=== PATIENT | male | born 1950 | race Caucasian/White ===

== ENCOUNTER 2017-08-15 08:34 | Outpatient (RCR) | payer MEDICARE, SELFPAY ==
[2017-08-15 10:19] LABS: International Normalized Ratio 2.3; Prothrombin Time (Protime)PT. 24.2 SECONDS (11.7-14.9)
== END 2017-08-15 09:00 | disposition home or self-care (01) ==
LOC: LAB 08:34
PROVIDERS: Family Provider Family Medicine; PCP Family Medicine; Visit Provider Internal Medicine Cardiovascular Disease
DX: I48.0 Paroxysmal atrial fibrillation (principal)
CPT/HCPCS: 36415; 85610

== ENCOUNTER 2017-09-12 08:20 | Outpatient (RCR) | payer MEDICARE, SELFPAY ==
[2017-09-12 09:22] LABS: International Normalized Ratio 2.1; Prothrombin Time (Protime)PT. 22.4 SECONDS (11.7-14.9)
== END 2017-09-12 08:45 | disposition home or self-care (01) ==
LOC: LAB 08:20
PROVIDERS: Family Provider Family Medicine; PCP Family Medicine; Visit Provider Internal Medicine Cardiovascular Disease
DX: I48.0 Paroxysmal atrial fibrillation (principal)
CPT/HCPCS: 36415; 85610

== ENCOUNTER 2017-11-05 08:58 | Outpatient (RCR) | payer MEDICARE, SELFPAY ==
[2017-11-05 10:42] LABS: International Normalized Ratio 2.1; Prothrombin Time (Protime)PT. 23.6 SECONDS (11.7-14.9)
== END 2017-11-05 09:00 | disposition home or self-care (01) ==
LOC: LAB 08:58
PROVIDERS: Family Provider Family Medicine; PCP Family Medicine; Visit Provider Internal Medicine Cardiovascular Disease
DX: I48.0 Paroxysmal atrial fibrillation (principal)
CPT/HCPCS: 36415; 85610

== ENCOUNTER 2017-12-03 08:35 | Outpatient (RCR) | payer MEDICARE, SELFPAY ==
[2017-12-03 09:37] LABS: International Normalized Ratio 2.3; Prothrombin Time (Protime)PT. 25.6 SECONDS (11.7-14.9)
== END 2017-12-03 09:00 | disposition home or self-care (01) ==
LOC: LAB 08:35
PROVIDERS: Family Provider Family Medicine; PCP Family Medicine; Visit Provider Internal Medicine Cardiovascular Disease
DX: I48.0 Paroxysmal atrial fibrillation (principal)
CPT/HCPCS: 36415; 85610

== ENCOUNTER → 2017-12-03 09:26 | Outpatient (CLI) | payer MEDICARE, SELFPAY ==
--- NOTE | 2017-12-03 09:27 | ECHOCS_ITS ---
Reason For Study: AFIB-FLUTTER Procedure This was a 2D Doppler, Color Flow transthoracic echocardiogram. Exam performed in department. Left Ventricle Normal LV size. Moderate concentric left ventricular hypertrophy. Left ventricular systolic function is normal. The estimated ejection fraction is 55 %. Unable to assess diastolic dysfunction. No regional wall motion abnormalities noted. Right Ventricle Normal RV size. Normal systolic function. Atria The left atrium is severely enlarged. The right atrium is moderately enlarged. Mitral Valve Normal mitral valve. Mild (1+) eccentric mitral valve insufficiency. Tricuspid Valve Normal tricuspid valve. Mild (1+) tricuspid valve insufficiency. Pulmonary artery systolic pressure is 24 mmHg. Aortic Valve Trisinus/trileaflet aortic valve. Pulmonic Valve Normal pulmonic valve. Great Vessels Normal aortic root. The pulmonary artery is normal size. Normal inferior vena cava. Pericardium/Pleural No pericardial effusion. Medication 22 gauge I.V. with prn adaptor inserted into right arm. Diluted definity 3ml given slow IV push to enhance endocardial definition. MMode/2D Measurements & Calculations LVIDd: 4.8 cm IVSd: 1.3 cm Ao root diam: 3.9 cm LVIDs: 3.4 cm LVPWd: 1.4 cm RVDd: 3.9 cm FS: 28.5 % LAV(MOD-bp): 197.8 ml LAV(MOD-bp) Indexed: 86.2 ml/m2 LA A4 area: 48.4 cm2 RA A4 area: 28.4 cm2 LAV(MOD-sp2): 175.4 ml LAV(MOD-sp4): 211.4 ml Doppler Measurements & Calculations MV E max rosa: 116.6 cm/sec Ao V2 max: 123.4 cm/sec LV V1 max: 117.4 cm/sec Ao max P.1 mmHg LV V1 max P.5 mmHg PA V2 max: 93.0 cm/sec TR max rosa: 226.7 cm/sec TR max P.6 mmHg Interpretation Summary Normal LV size. Moderate concentric left ventricular hypertrophy. Left ventricular systolic function is normal. The estimated ejection fraction is 55 %. Unable to assess diastolic dysfunction. The left atrium is severely enlarged. The right atrium is moderately enlarged. Contrast injection was performed. Ordering Physician: Dhiraj Wells Referring Physician: ISHAN CHAPARRO Performed By: Priscilla Martino RDCS
== END ==
PROVIDERS: Family Provider Family Medicine; PCP Family Medicine; Visit Provider Internal Medicine Cardiovascular Disease
DX: I48.2 Chronic atrial fibrillation (principal); I48.0 Paroxysmal atrial fibrillation
CPT/HCPCS: 36415; 85610; 93306; Q9957; A4216; C8929

== ENCOUNTER 2018-01-30 08:04 | Outpatient (RCR) | payer MEDICARE, SELFPAY ==
[2018-01-30 09:32] LABS: International Normalized Ratio 2.1; Prothrombin Time (Protime)PT. 23.5 SECONDS (11.7-14.9)
== END 2018-01-30 09:00 | disposition home or self-care (01) ==
LOC: LAB 08:04
PROVIDERS: Family Provider Family Medicine; PCP Family Medicine; Visit Provider Internal Medicine Cardiovascular Disease
DX: I48.2 Chronic atrial fibrillation (principal); Z86.73 Personal history of transient ischemic attack (TIA), and cerebral infarction without residual deficits
CPT/HCPCS: 36415; 85610

== ENCOUNTER 2018-03-20 08:35 | Outpatient (RCR) | payer MEDICARE, SELFPAY ==
[2018-03-20 09:27] LABS: International Normalized Ratio 2.1; Prothrombin Time (Protime)PT. 23.4 SECONDS (11.7-14.9)
== END 2018-03-20 10:00 | disposition home or self-care (01) ==
LOC: LAB 08:35
PROVIDERS: Family Provider Family Medicine; PCP Family Medicine; Visit Provider Internal Medicine Cardiovascular Disease
DX: I48.2 Chronic atrial fibrillation (principal); Z86.73 Personal history of transient ischemic attack (TIA), and cerebral infarction without residual deficits
CPT/HCPCS: 36415; 85610

== ENCOUNTER 2018-06-05 08:30 | Outpatient (RCR) | payer MEDICARE, SELFPAY ==
[2018-06-05 09:52] LABS: International Normalized Ratio 2.6; Prothrombin Time (Protime)PT. 27.9 SECONDS (11.7-14.9)
== END 2018-06-05 10:00 | disposition home or self-care (01) ==
LOC: LAB 08:30
PROVIDERS: Family Provider Family Medicine; PCP Family Medicine; Visit Provider Internal Medicine Cardiovascular Disease
DX: I48.2 Chronic atrial fibrillation (principal); Z86.73 Personal history of transient ischemic attack (TIA), and cerebral infarction without residual deficits
CPT/HCPCS: 36415; 85610

== ENCOUNTER → 2018-07-24 09:39 | Outpatient (CLI) | payer MEDICARE, SELFPAY ==
[2018-07-24 13:10] LABS: Prothrombin Time (Protime)PT. 22.5 SECONDS (11.7-14.9)
[2018-07-24 13:50] LABS: Anion Gap 8 (5-15); BUN 28 mg/dL (7-18); BUN/Creat Ratio 29.6 RATIO (10-20); Calcium,Total 8.8 mg/dL (8.5-10.1); Chloride 109 mmol/L (98-107); Cholesterol 172 mg/dL (200); Creatinine, Serum 0.95 mg/dL (0.70-1.30); EST Glomerular Filtration Rate 85 mL/min (>60); Est Glom Filt Rate - Afr Amer 102 mL/min (>60); Glucose 80 mg/dL (74-106); High Density Lipoprotein 69 mg/dL; PSA,Total - Annual Screen 0.13 ng/mL (0.00-4.00); Potassium 4.5 mmol/L (3.5-5.1); Sodium Level 140 mmol/L (136-145); Thyroid Stim Hormone (TSH) 1.91 uIU/mL (0.358-3.74); Triglycerides 56 mg/dL; Very Low Density Lipoprotein 11 mg/dL (5-40)
[2018-07-24 14:09] LABS: Vitamin D,25 Hydroxy 30.2 ng/mL (29.95-100.01)
--- OUTSIDE RECORDS SUMMARY | 2018-09-08 23:30 | XMS RPT_ITS ---
:1950 Author Organization [place] Support Name Relationship Address Phone LENORE MERA Unavailable [phone] + [place] [address] [employer] Unavailable [address] + [place] [address] EDE, LENORE Unavailable [address] + [place] [address] [employer] Unavailable [address] + [place] [address] MAST, LENORE Unavailable [phone] + [place] [address] [employer] Unavailable [address] + [place] [address] MAST, LENORE Unavailable [address] + [place] [address] [employer] Unavailable [address] + [place] [address] MAST, LENORE Unavailable [address] + [place] [address] [employer] Unavailable [address] + [place] [address] MAST, LENORE Unavailable [address] + [place] [address] [employer] Unavailable [address] + [place] [address] MAST, LENORE Unavailable [address] + [place] [address] [employer] Unavailable [address] + [place] [address] MAST, LENORE Unavailable [address] + [place] [address] [employer] Unavailable [address] + [place] [address] MAST, LENORE Unavailable [address] + [place] [address] [employer] Unavailable [address] + [place] [address] MAST, LENORE Unavailable [address] + [place] [address] [employer] Unavailable [address] + [place] [address] MAST, LENORE Unavailable [address] + [place] [address] [employer] Unavailable [address] + [place] [address] MAST, LENORE Unavailable [address] + [place] [address] [employer] Unavailable [address] + [place], [place] [id number] [place] [address], LENORE Unavailable [address] + [place] [address] [employer] Unavailable [address] + [place] [address] Care Team Providers Name Role Phone Skinny Chaaprro Attending Unavailable Skinny Chaparro Primary Care Unavailable [place], [place] Attending Unavailable Russell, [place] Referring Unavailable Skinny Chaparro Primary Care Unavailable [place], Dhiraj Attending Unavailable Russell, [place] Referring Unavailable Skinny Chaparro Primary Care Unavailable Russell, Dhiraj Attending Unavailable Russell, Dhiraj Referring Unavailable Skinny Chaparro Primary Care Unavailable Hortencia Henry Attending Unavailable Russell, [place] Attending Unavailable Skinny Chaparro Referring Unavailable Skinny Chaparro Primary Care Unavailable Russell, Dhiraj Attending Unavailable Russell, [place] Referring Unavailable Skinny Chaparro Primary Care Unavailable Russell, [place] Attending Unavailable Russell, [place] Referring Unavailable Skinny Chaparro Primary Care Unavailable Russell, Dhiraj Attending Unavailable Russell, Dhiraj Referring Unavailable Skinny Chaparro Primary Care Unavailable Russell, Dhiraj Attending Unavailable Russell, Dhiraj Attending Unavailable Russell, Dhiraj Referring Unavailable Skinny Chaparro Primary Care Unavailable Russell, [place] Attending Unavailable Russell, [place] Referring Unavailable Skinny Chaparro Primary Care Unavailable Russell, Dhiraj Attending Unavailable Russell, [place] Referring Unavailable Skinny Chaparro Primary Care Unavailable PROBLEMS PROBLEMS DATE TYPE CONDITION / CODE ATTENDING STATUS SOURCE Unknown I48.2 - Chronic atrial Russell, [place] Active [place] 8 fibrillation / Community I48.2(ICD-10) Hospital Repository Unknown I63.9 - Cerebral Russell, Dhiraj Active [place] 8 infarction, unspecified / Community I63.9(ICD-10) Hospital Repository Unknown I48.0 - Paroxysmal atrial Russell, Dhiraj Active [place] fibrillation / Community I48.0(ICD-10) Hospital Repository Unknown E78.00 - Pure Russell, [place] Active [place] 8 hypercholesterolemia, Community unspecified / Hospital E78.00(ICD-10) Repository Unknown E78.0 - Pure Russell, [place] Active [place] hypercholesterolemia / Community E78.0(ICD-10) Hospital Repository PROCEDURES PROCEDURES No Procedure Records FoundRESULTS RESULTS PROTHROMBIN TIME W/INR Collected: 07/24/2018 Status: F Source: [place] 9:41 AM [facility] REPOSITORY TYPE CODE TESTS RESULT OUT OF RANGE REFERENCE UNITS LAB L300.4150 11.7-14.9 SECONDS High PROTIME 22.5 LAB L300.4200 Normal INR 2.0 Performed By: #### L300.3900 #### [facility] [address] [place], [place] [address], [address] BASIC METABOLIC Collected: 07/24/2018 Status: F Source: [place] PROFILE (BMP) 9:40 AM [facility] REPOSITORY TYPE CODE TESTS RESULT OUT OF RANGE REFERENCE UNITS LAB L501.0100 74-106 mg/dL Normal GLU 80 Result Comment: Please note revised GLUCOSE reference range effective 2017. LAB L501.1000 7-18 mg/dL High BUN 28 LAB L501.1100 0.70-1.30 mg/dL Normal CREAT,SERUM 0.95 Result Comment: The validity of the calculated GFR AND GFRAA in patients over 70 years has not been determined. Clinical correlation is essential. LAB L501.1110 >60 mL/min Normal EST GFR 85 Result Comment: Non- GFR Calc LAB L501.1115 >60 mL/min Normal EST GFR - AA 102 Result Comment: GFR Calc LAB L501.1300 10-20 RATIO High BUN/CRE 29.6 LAB L501.2200 8.5-10.1 mg/dL CA Normal 8.8 LAB L501.5300 136-145 mmol/L NA Normal 140 LAB L501.5600 3.5-5.1 mmol/L K Normal 4.5 Result Comment: Slight Hemolysis, Result may be falsely increased. LAB L501.5900 98-107 mmol/L High CL 109 LAB L501.6100 21.0-32.0 mmol/L Normal CO2 23.0 LAB L501.6200 5-15 Normal 8 GAP Performed By: #### L500.2500, L500.4100, L501.9520, L501.9910 #### [facility] [address] [place], [address] LIPID PROFILE Collected: 07/24/2018 Status: F Source: [place] 9:40 AM [facility] REPOSITORY TYPE CODE TESTS RESULT OUT OF RANGE REFERENCE UNITS LAB L501.4900 200 mg/dL Normal CHOL 172 Result Comment: <200 mg/dL Desirable 200-240 mg/dL Borderline >240 mg/dL High Risk LAB L501.5000 mg/dL Normal TRIG 56 Result Comment: The drugs N-Acetylcysteine and Metamizole may falsely depress this assay. Serum Triglycerides Reference Interval Normal <150 mg/dL Borderline high 150 - 199 mg/dL High 200 - 499 mg/dL Very High > or = 500 mg/dL LAB L501.6400 mg/dL Normal HDL 69 Result Comment: The drugs N-Acetylcysteine and Metamizole may falsely depress this assay. Reference Range HDL <40 mg/dL Low HDL Cholesterol HDL >or= 60 mg/dL High HDL Cholesterol LAB L501.6500 0-130 mg/dL Normal LDL 92 LAB L501.6600 5-40 mg/dL Normal VLDL 11 Performed By: #### L500.2500, L500.4100, L501.9520, L501.9910 #### [facility] [address] [place], [address] THYROID STIM HORMONE Collected: 07/24/2018 Status: F Source: [place] (TSH) 9:40 AM [facility] REPOSITORY TYPE CODE TESTS RESULT OUT OF RANGE REFERENCE UNITS LAB L501.9520 0.358-3.74 uIU/mL Normal TSH 1.91 Performed By: #### L500.2500, L500.4100, L501.9520, L501.9910 #### [facility] [address] [place], [address] PSA,TOTAL - ANNUAL Collected: 07/24/2018 Status: F Source: [place] SCREEN 9:40 AM [facility] REPOSITORY TYPE CODE TESTS RESULT OUT OF RANGE REFERENCE UNITS LAB L501.9910 0.00-4.00 ng/mL Normal PSA,TOT 0.13 SCREEN Result Comment: This test was performed using the TPSA assay method for the [employer] chemistry system. Values obtained with different assay methods cannot be used interchangably. When changing PSA assays in the course of monitoring a patient, additional sequential testing should be carried out to confirm baseline values. Performed By: #### L500.2500, L500.4100, L501.9520, L501.9910 #### [facility] [address] [place], [address] VITAMIN D,25 HYDROXY Collected: 07/24/2018 Status: F Source: [place] 9:40 AM [facility] REPOSITORY TYPE CODE TESTS RESULT OUT OF RANGE REFERENCE UNITS LAB L506.1000 29.95-100.01 ng/mL Normal Vitamin D 30.2 25-OH Result Comment: Vitamin D 25(OH) Status Range Deficiency <20 ng/mL (50nmol/L) Insuffciency 20 - 30 ng/mL (50 - 75 nmol/L) Sufficiency 30 - 100 ng/mL (75 - 250 nmol/L) Toxicity >100 ng/mL (>250 nmol/L) Performed By: #### L506.1000 #### [facility] [address] [place], [address] PROTHROMBIN TIME W/INR Collected: 06/05/2018 Status: F Source: [place] 8:33 AM [facility] REPOSITORY TYPE CODE TESTS RESULT OUT OF RANGE REFERENCE UNITS LAB L300.4150 11.7-14.9 SECONDS High PROTIME 27.9 LAB L300.4200 Normal INR 2.6 Performed By: #### L300.3900 #### [facility] [address] [place], [address] PROTHROMBIN TIME W/INR Collected: 03/20/2018 Status: F Source: [place] 8:38 AM [facility] REPOSITORY Order Comment: Comments: STANDING ORDER Comments: STANDING ORDER TYPE CODE TESTS RESULT OUT OF RANGE REFERENCE UNITS LAB L300.4150 11.7-14.9 SECONDS High PROTIME 23.4 LAB L300.4200 Normal INR 2.1 Performed By: #### L300.3900 #### [facility] [address] [place], [address] PROTHROMBIN TIME W/INR Collected: 01/30/2018 Status: F Source: [place] 8:12 AM [facility] REPOSITORY TYPE CODE TESTS RESULT OUT OF RANGE REFERENCE UNITS LAB L300.4150 11.7-14.9 SECONDS High PROTIME 23.5 LAB L300.4200 Normal INR 2.1 Performed By: #### L300.3900 #### [facility] [address] [place], [address] ECHO, COMPLETE W/ Observed: 12/03/2017 Status: F Source: [place] CONTRAST 7:33 PM [facility] REPOSITORY [facility] [address] [place] [address] Echo Complete W/ Contrast 12/03/17 1000 MR#: [id number] Acct: [id number] Name: SUSANA MERA Rep #: [id number] : 1950 67 From: Dhiraj Wells MD Attending Dr: Dhiraj Wells MD Status: REG CLI Ordering Dr: Dhiraj Wells MD Date: 12/03/17 Location: CVS Sex: M C Admitted: Reason For Study: AFIB-FLUTTER Procedure This was a 2D Doppler, Color Flow transthoracic echocardiogram. Exam performed in department. Left Ventricle Normal LV size. Moderate concentric left ventricular hypertrophy. Left ventricular systolic function is normal. The estimated ejection fraction is 55 %. Unable to assess diastolic dysfunction. No regional wall motion abnormalities noted. Right Ventricle Normal RV size. Normal systolic function. Atria The left atrium is severely enlarged. The right atrium is moderately enlarged. Mitral Valve Normal mitral valve. Mild (1+) eccentric mitral valve insufficiency. Tricuspid Valve Normal tricuspid valve. Mild (1+) tricuspid valve insufficiency. Pulmonary artery systolic pressure is 24 mmHg. Aortic Valve Trisinus/trileaflet aortic valve. Pulmonic Valve Normal pulmonic valve. Great Vessels Normal aortic root. The pulmonary artery is normal size. Normal inferior vena cava. Pericardium/Pleural No pericardial effusion. Medication 22 gauge I.V. with prn adaptor inserted into right arm. Diluted definity 3ml given slow IV push to enhance endocardial definition. MMode/2D Measurements AND Calculations LVIDd: 4.8 cm IVSd: 1.3 cm Ao root diam: 3.9 cm LVIDs: 3.4 cm LVPWd: 1.4 cm RVDd: 3.9 cm FS: 28.5 % LAV(MOD-bp): 197.8 ml LAV(MOD-bp) Indexed: 86.2 ml/m2 LA A4 area: 48.4 cm2 RA A4 area: 28.4 cm2 LAV(MOD-sp2): 175.4 ml LAV(MOD-sp4): 211.4 ml Doppler Measurements AND Calculations MV E max rosa: 116.6 cm/sec Ao V2 max: 123.4 cm/sec LV V1 max: 117.4 cm/sec Ao max P.1 mmHg LV V1 max P.5 mmHg PA V2 max: 93.0 cm/sec TR max rosa: 226.7 cm/sec TR max P.6 mmHg Interpretation Summary Normal LV size. Moderate concentric left ventricular hypertrophy. Left ventricular systolic function is normal. The estimated ejection fraction is 55 %. Unable to assess diastolic dysfunction. The left atrium is severely enlarged. The right atrium is moderately enlarged. Contrast injection was performed. Ordering Physician: Dhiraj Wells Referring Physician: SKINNY CHAPARRO Performed By: Priscilla Martino RDCS 12/03/171931 Date Dhiraj Wells MD CC: Dhiraj Wells MD; Skinny Chaparro MD Date Dictated: 12/03/17 1000 Date Transcribed: 12/03/171931 Gynaecological Oncologist: Signed PROTHROMBIN TIME W/INR Collected: 12/03/2017 Status: F Source: [place] 8:38 AM [facility] REPOSITORY TYPE CODE TESTS RESULT OUT OF RANGE REFERENCE UNITS LAB L300.4150 11.7-14.9 SECONDS High PROTIME 25.6 LAB L300.4200 Normal INR 2.3 Performed By: #### L300.3900 #### [facility] [address] [place], [address] CARDIOLOGY VISIT Observed: 11/05/2017 Status: F Source: [place] REPORT 10:44 AM [facility] REPOSITORY [facility] [address] [place] [address] OFFICE VISIT Date of Service: 11/05/17 MR#: [id number] Acct: [id number] Name: SUSANA MERA Rep #: [id number] : 1950 Provider: Dhiraj Wells MD Age/Sex: 67/M Location: [facility] Status: Signed HPI HPI Chief Complaint: Follow up visit Details: SUSANA MERA, is a 67 M who presents to the office today for a follow-up visit. He is a gentleman with a history of persistent atrial fibrillation history of previous cerebrovascular accident. He returns for routine follow-up visit he denies any chest pain he has not had any shortness of breath or paroxysmal nocturnal dyspnea pedal edema he has had no neck arm or jaw discomfort suggest angina no dizziness or diaphoresis no near syncope or syncope. He was asking about whether he will be a candidate for an ablation or not because some of his friends have had it. He has not had any neck arm or jaw discomfort suggest angina. His physical exam today demonstrates clear lung hu irregular rate and rhythm and no pedal edema. Intake Vital Signs11/05/17 Height 5 ft 10 in Intake Visit Reasons: 6 M FU (needs Fris a.m.) Allergies No Known Allergies Allergy (Verified 08/27/17 16:00) Medications Warfarin [Coumadin] 4 mg PO MOTUWETHFRSA 08/15/14 [History Confirmed 09/12/17] Warfarin [Coumadin] 6 mg PO WATSON 08/15/14 [History Confirmed 09/12/17] Aspirin [Aspirin, Baby] 81 mg PO DAILY@0800 08/22/14 [History Confirmed 08/27/17] Metoprolol Tartrate [Lopressor (beta kate)] 25 mg PO BID 08/22/14 [History Confirmed 08/29/17] Multivitamin-Min/Iron/FA/Vit K [Multi-Day Plus Minerals Tablet] 1 ea PO DAILY 08/27/17 [History Confirmed 08/27/17] [facility], [facility] Medical History CVA (cerebral vascular accident) (Chronic) Chronic atrial fibrillation (Chronic) Left ventricular apical thrombus (Resolved) Hyperlipidemia (Chronic) Obesity (Chronic) Surgical History H/O inguinal hernia repair (Chronic) History of hand surgery (Chronic 11/30/12) History of incision and drainage (Chronic 08/30/14) Status post excisional debridement (Chronic 11/04/14) Family History Mother Heart disease atrial fib Father Heart disease atrial fib Social History Smoking Status: Never smoker ROS Const Const: Negative for fatigue, weakness, difficulty sleeping, frequent falls, headache(s) or excessive sweating Eyes Eyes: Negative for loss of peripheral vision, transient loss of vision, blurry vision or double vision ENT ENT: Negative for headache(s), dizziness, Nosebleed/epistaxis or balance problems Cardio Chest Pain: No Edema: None, Bilateral (BLE R>L) Muscle aches with walking: None Resp Respiratory: Negative for SOB with activity, SOB at rest, SOB orthopnea\SOB lying down or paroxysmal nocturnal dyspnea GI GI: Negative nausea or heartburn : Negative for hematuria Musc Musc: Negative for muscle aches/ myalgia, muscle weakness, joint pain or balance problems Skin Skin: Negative non-healing lesions, unusual bruising or rash Neuro Neuro: Negative for weakness, frequent falls, blurry vision, headache(s), dizziness, lightheadedness, orthostatic symptoms or double vision Patricio Hematologic/Lymphatic: Negative for easy bruising Endo Endo: Negative for fatigue, excessive sweating or increased thirst/drinking Psych Psych: Negative for anxiety or depression Allergy Allergy/Immunology: Negative for hives, Negative for rash Cardiology Exam Const Appearance: cooperative, healthy appearing, well developed, well groomed and no acute distress Nutritional Appearance: well nourished and average body habitus Orientation: alert, awake and oriented x3 Head Head: normal to inspection, normocephalic and atraumatic Ears: hearing grossly normal bilaterally and external ears normal Nose: external nose normal, nasal mucous membranes and turbinates normal, nares normal, septum normal, no nasal discharge Face and Sinus: face symmetric Mouth: oral mucosae normal, tongue normal, oropharynx normal and moist mucous membranes Teeth and gingiva: dentition normal Throat: posterior oropharynx normal, tonsils normal and uvula midline Eyes General: appearance normal, both eyes and all related structures Eyelids: eyelids normal Conjunctivae: conjunctivae normal Pupils: PERRL, normal by confrontation and accommodation normal EOM: EOM intact bilaterally Neck Neck: normal visual inspection, trachea midline and no JVD JVD: +5 Carotids: normal carotid upstroke and bounding pulses Chest Chest inspection: normal inspection of the chest, symmetric chest movement and normal respiratory effort Auscultation: Bilateral: Clear to Auscultation Cardio Palpation: normal PMI Rate: regular rate Rhythm: irregular rhythm Heart sounds: S1 normal, S2 normal and normal, physiologic split S2; negative rub, gallop or murmur GI GI: normal to inspection, soft, no hepatosplenomegaly and bowel sounds present Neuro General: alert, awake, oriented x3, no focal sensory deficit, gait normal and moves all extremities Skin Skin: no rashes or lesions noted Extremities Pulses: Normal: Right Femoral Pulse, Left Femoral Pulse, Right Dorsalis Pedis Pulse, Left Dorsalis Pedis Pulse, Right Posterior Tibial Pulse, Left Posterior Tibial Pulse, Right Radial Pulse, Left Radial Pulse Lower Extremity Edema: None: Bilateral Musculoskel Musculoskeletal: No joint tenderness Psych Psychological: normal affect Assessment AND Plan 1. Chronic atrial fibrillation I48.2 Plan He does have chronic persistent atrial fibrillation. His rate is controlled and the plan will be to continue him on the anticoagulation the importance of getting his labs done have been stressed. I would like us to obtain an echocardiogram to reassess his left ventricular function. Due to his previous cerebrovascular accident he does have an elevated chads score and this is important. Orders Orders: 2. Pure hypercholesterolemia E78.00; E78.0 Plan He is not on any statin at this time for this his most recent lipid profiles have been acceptable. He should continue to watch his diet and exercise. Thank you for allowing me to participate in the care of your patient. Please don't hesitate to call if any issues arise Plan Detail Follow Up 1 Year (mmm) Coding Level of Care Code Off vis,est,level 3 Diagnoses Chronic atrial fibrillation I48.2 Pure hypercholesterolemia E78.00; E78.0 Hyperlipidemia type: pure hypercholesterolemia Coding Level of Care Code Off vis,est,level 3 Diagnoses Chronic atrial fibrillation I48.2 Pure hypercholesterolemia E78.00; E78.0 Hyperlipidemia type: pure hypercholesterolemia 11/05/17 1044 <Electronically signed by Dhiraj Wells MD> Date Dhiraj Mackay Signature: Date (if applicable) CC: Skinny Chaparro MD PROTHROMBIN TIME W/INR Collected: 11/05/2017 Status: F Source: [place] 9:09 AM [facility] REPOSITORY TYPE CODE TESTS RESULT OUT OF RANGE REFERENCE UNITS LAB L300.4150 11.7-14.9 SECONDS High PROTIME 23.6 LAB L300.4200 Normal INR 2.1 Performed By: #### L300.3900 #### [facility] [address] [place], [address] PROTHROMBIN TIME W/INR Collected: 09/12/2017 Status: F Source: [place] 8:30 AM [facility] REPOSITORY TYPE CODE TESTS RESULT OUT OF RANGE REFERENCE UNITS LAB L300.4150 11.7-14.9 SECONDS High PROTIME 22.4 LAB L300.4200 Normal INR 2.1 Performed By: #### L300.3900 #### [facility] [address] [place], [address] ALLERGIES ALLERGIES DATE TYPE / CODE NAME / CODE REACTION SEVERITY SOURCE 08/27/2017 Drug No Known Unknown [facility] Allergy/4160 Allergies/F00 [facility] 09899(SNOMED [id number](RXNOR Repository CT) M) ENCOUNTERS ENCOUNTERS ADMIT/DISCHARGE ACCOUNT ADMITTING ENCOUNTER LOCATION SOURCE NUMBER CLASS 07/24/2018 [id number] Ambulatory [place] 0 [facility] ing:MFPLAB Repository 06/11/2018 [id number] Ambulatory [place] 4 [facility] ing:LAB Repository 06/05/2018/ [id number] Ambulatory [place] 1 [facility] ing:LAB Repository 03/20/2018/ [id number] Ambulatory [place] 8 4 [facility] ing:LAB Repository 01/30/2018/ [id number] Ambulatory [place] 8 4 [facility] ing:LAB Repository 12/03/2017 [id number] Ambulatory [place] 8 [facility] ing:[facility] Repository 12/03/2017 [id number] Ambulatory BMSBuilding:W [place] 0 [facility] Repository 12/03/2017/ [id number] Ambulatory [place] 8 5 [facility] ing:LAB Repository 11/05/2017/ [id number] Ambulatory BMSBuilding:B [place] 8 9 [facility] Repository 11/05/2017/ [id number] Ambulatory [place] 8 1 [facility] ing:LAB Repository 11/04/2017 [id number] Ambulatory BMSBuilding:B [place] 6 [facility] Repository 09/12/2017/ [id number] Ambulatory [place] 8 9 [facility] ing:LAB Repository 09/12/2017 [id number] Ambulatory [place] 8 [facility] ing:LAB Repository PAYERS PAYERS ENCOUNTER GUARANTOR PAYER SUBSCRIBER SOURCE 07/24/2018 [place] [id number] Insurance:HUMANA MASTDOB: Community NONPARIEL MEDICARE PPOPolicy [id number] Number: Repository , [place] [address]Xjx: [id number] Date:1193-56-97[address] ) [id number] [place] [id number]: 07/24/2018 Secondary NOT GIVENUNK [place] Insurance:SELF PAY [facility] Number: Effective Repository Date:2018-07-24 06/11/2018 [place] [id number] Insurance:HUMANA MASTDOB: Community NONPARIEL MEDICARE PPOPolicy [id number] Number: Repository , [place] [address]Fdo: [id number] Date:2657-23-65UG [address] () [address] [place] [phone]: 06/11/2018 Secondary NOT GIVENUNK [place] Insurance:SELF PAY [facility] Number: Effective Repository Date:2018-06-11 06/05/2018 S[place]NA D Primary SUSANA D [place] [id number] Insurance:HUMANA MASTDOB: Community NONPARIEL MEDICARE [facility] [id number] Number: Repository , [place] [address]Qfl: [id number] Date:0130-03-93KS [address] () [address] [place] [phone]: 06/05/2018 Secondary NOT GIVENUNK [place] Insurance:SELF PAY [facility] Number: Effective Repository Date:2018-04-14 03/20/2018 SUSANA D Primary SUSANA D [place] [id number] Insurance:HUMANA MASTDOB: Community NONPARIEL MEDICARE [facility] [id number] Number: Repository , [place] [address]Ijt: [id number] Date:4179-34-73QL [address] () [address] [place] [phone]: 03/20/2018 Secondary NOT GIVENUNK [place] Insurance:SELF PAY [facility] Number: Effective Repository Date:2018-02-06 01/30/2018 SUSANA D Primary SUSANA D [place] [id number] Insurance:HUMANA MASTDOB: Community NONPARIEL MEDICARE [facility] [id number] Number: Repository , [place] [address]Qkw: [id number] Date:0985-09-55WN [address] () [address] [place] [phone]: 01/30/2018 Secondary NOT GIVENUNK [place] Insurance:SELF PAY [facility] Number: Effective Repository Date:2017-12-09 12/03/2017 SUSANA D Primary SUSANA D Maikol [id number] Insurance:HUMANA MASTDOB: Community NONPARIEL MEDICARE [facility] [id number] Number: Repository , [place] [address]Brl: [id number] [phone] Date:1008-77-91[address] (HP) [address] [place] [id number]: 12/03/2017 Secondary NOT GIVENUNK Maikol Insurance:SELF PAY [facility] Number: Effective Repository Date:2017-11-05 12/03/2017 SUSANA D Primary SUSANA D Gladys [id number] Insurance:HUMANA MASTDOB: Community NONPARIEL MEDICARE [facility] [id number] Number: Repository , [place] [address]Pya: [id number] [phone] Date:9618-13-28KJ [address] (HP) [address] [place] [id number]: 12/03/2017 Secondary NOT GIVENUNK Gladys Insurance:SELF PAY [facility] Number: Effective Repository Date:2017-12-03 12/03/2017 SUSANA D Primary SUSANA D Gladys [id number] Insurance:HUMANA MASTDOB: Community NONPARIEL MEDICARE [facility] [id number] Number: Repository , [place] [address]Lad: [id number] [phone] Date:3121-64-85SR [address] (HP) [address] [place] [id number]: 12/03/2017 Secondary NOT GIVENUNK Maikol Insurance:SELF PAY [facility] Number: Effective Repository Date:2017-11-10 11/05/2017 SUSANA D Primary SUSANA D Maikol [id number] Insurance:HUMANA MASTDOB: Community NONPARIEL MEDICARE [facility] [id number] Number: Repository , [place] [address]Ltp: [id number] [phone] Date:6754-58-31YT [address] (HP) [address] [place] [id number]: 11/05/2017 Secondary NOT GIVENUNK Maikol Insurance:SELF PAY [facility] Number: Effective Repository Date:2017-07-17 11/05/2017 SUSANA D Primary SUSANA D Gladys [id number] Insurance:HUMANA MASTDOB: Community NONPARIEL MEDICARE [facility] [id number] Number: Repository , [place] [address]Gdo: [id number] [phone] Date:9518-82-36DR [address] (HP) [address] [place] [id number]: 11/05/2017 Secondary NOT GIVENUNK Gladys Insurance:SELF PAY [facility] Number: Effective Repository Date:2017-10-09 11/04/2017 SUSANA D Primary SUSANA D Maikol [id number] Insurance:HUMANA MASTDOB: Community NONPARIEL MEDICARE [facility] [id number] Regional Medical [facility] Number: Repository , [place] [address]Ram: [id number] [phone] Date:8256-77-22VD [address] () [address] [place] [id number]: 11/04/2017 Secondary NOT GIVENUNK Maikol Insurance:SELF PAY [facility] Number: Effective Repository Date:2017-11-04 09/12/2017 SUSANA D Primary SUSANA D Maikol [id number] Insurance:HUMANA MASTDOB: Community NONPARIEL MEDICARE [facility] [id number] Regional Medical [facility] Number: Repository , [place] [address]Ffr: [id number] [phone] Date:8836-15-14YE [address] () [id number] [place] [id number]: 09/12/2017 Secondary NOT GIVENUNK Gladys Insurance:SELF PAY [facility] Number: Effective Repository Date:2017-09-12 09/12/2017 SUSANA D Primary SUSANA D Maikol [id number] Insurance:HUMANA MASTDOB: Community NONPARIEL MEDICARE [facility] [id number] Service UnitFREDERREGGIEAB[facility] Number: Repository , [place] [address]Dnj: [id number] [phone] Date:5006-85-01NM [address] () [address], [place] [address]HB: 09/12/2017 Secondary NOT GIVENUNK Maikol Insurance:SELF PAY [facility] Effective Repository Date:2017-09-12
== END ==
PROVIDERS: Internal Medicine Cardiovascular Disease; Family Provider Family Medicine; PCP Family Medicine; Visit Provider Family Medicine
DX: Z00.00 Encounter for general adult medical examination without abnormal findings (principal); Z12.5 Encounter for screening for malignant neoplasm of prostate; I48.2 Chronic atrial fibrillation; Z86.73 Personal history of transient ischemic attack (TIA), and cerebral infarction without residual deficits
CPT/HCPCS: 36415; 80048; 80061; 82306; 84153; 84443; 85610; G0103

== ENCOUNTER 2018-11-11 08:53 | Outpatient (RCR) | payer MEDICARE, SELFPAY ==
[2018-11-11 10:06] LABS: International Normalized Ratio 1.9; Prothrombin Time (Protime)PT. 22.1 SECONDS (11.7-14.9)
== END 2018-12-08 16:00 | disposition home or self-care (01) ==
LOC: LAB 08:53
PROVIDERS: Family Provider Family Medicine; PCP Family Medicine; Referring Provider Internal Medicine Cardiovascular Disease; Visit Provider Internal Medicine Cardiovascular Disease
DX: I48.2 Chronic atrial fibrillation (principal); Z86.73 Personal history of transient ischemic attack (TIA), and cerebral infarction without residual deficits
CPT/HCPCS: 36415; 85610

== ENCOUNTER 2019-01-27 08:33 | Outpatient (RCR) | payer MEDICARE, SELFPAY ==
[2018-11-11 07:59] VITALS: BMI 41.0
[2019-01-27 09:21] LABS: International Normalized Ratio 2.5; Prothrombin Time (Protime)PT. 26.8 SECONDS (11.7-14.9)
== END 2019-02-07 12:00 | disposition home or self-care (01) ==
LOC: LAB 08:33
PROVIDERS: Family Provider Family Medicine; PCP Family Medicine; Referring Provider Internal Medicine Cardiovascular Disease; Visit Provider Internal Medicine Cardiovascular Disease
DX: I48.2 Chronic atrial fibrillation (principal); Z79.01 Long term (current) use of anticoagulants
CPT/HCPCS: 36415; 85610

== ENCOUNTER 2019-05-07 12:18 | Outpatient (RCR) | payer MEDICARE, SELFPAY ==
[2018-11-11 07:59] VITALS: BMI 41.0
[2019-05-07 14:01] LABS: International Normalized Ratio 2.6; Prothrombin Time (Protime)PT. 28.3 SECONDS (11.7-14.9)
== END 2019-05-07 13:00 | disposition home or self-care (01) ==
LOC: LAB 12:18
PROVIDERS: Family Provider Family Medicine; PCP Family Medicine; Referring Provider Internal Medicine Cardiovascular Disease; Visit Provider Internal Medicine Cardiovascular Disease
DX: I48.2 Chronic atrial fibrillation (principal); Z79.01 Long term (current) use of anticoagulants
CPT/HCPCS: 36415; 85610

== ENCOUNTER → 2019-07-28 09:34 | Outpatient (CLI) | payer MEDICARE, SELFPAY ==
[2018-11-11 07:59] VITALS: BMI 41.0
[2019-07-28 10:21] LABS: International Normalized Ratio 2.5; Prothrombin Time (Protime)PT. 26.7 SECONDS (11.7-14.9)
[2019-07-28 10:41] LABS: Anion Gap 8 (5-15); BUN 20 mg/dL (7-18); BUN/Creat Ratio 22.4 RATIO (10-20); Calcium,Total 8.3 mg/dL (8.5-10.1); Chloride 105 mmol/L (98-107); Cholesterol 185 mg/dL (200); Creatinine, Serum 0.89 mg/dL (0.70-1.30); EST Glomerular Filtration Rate 90 mL/min (>60); Est Glom Filt Rate - Afr Amer 109 mL/min (>60); Glucose 74 mg/dL (74-106); High Density Lipoprotein 71 mg/dL; PSA,Total - Annual Screen 0.16 ng/mL (0.00-4.00); Potassium 4.2 mmol/L (3.5-5.1); Sodium Level 140 mmol/L (136-145); Triglycerides 52 mg/dL; Very Low Density Lipoprotein 10 mg/dL (5-40)
== END ==
PROVIDERS: Family Provider Family Medicine; PCP Family Medicine; Referring Provider Family Medicine; Visit Provider Family Medicine
DX: Z00.00 Encounter for general adult medical examination without abnormal findings (principal); Z12.5 Encounter for screening for malignant neoplasm of prostate; I48.91 Unspecified atrial fibrillation; E78.5 Hyperlipidemia, unspecified
CPT/HCPCS: 36415; 80048; 80061; 84153; 85610; G0103

== ENCOUNTER 2019-09-29 08:47 | Outpatient (RCR) | payer MEDICARE, SELFPAY ==
[2018-11-11 07:59] VITALS: BMI 41.0
== END 2019-09-29 18:00 | disposition home or self-care (01) ==
LOC: LAB 08:47
PROVIDERS: Family Provider Family Medicine; PCP Family Medicine; Referring Provider Internal Medicine Cardiovascular Disease; Visit Provider Internal Medicine Cardiovascular Disease
DX: I48.20 Chronic atrial fibrillation, unspecified (principal); Z79.01 Long term (current) use of anticoagulants
CPT/HCPCS: 36415; 85610

== ENCOUNTER 2020-02-10 07:52 | Outpatient (RCR) | payer MEDICARE, SELFPAY ==
[2018-11-11 07:59] VITALS: BMI 41.0
[2020-02-10 09:05] LABS: International Normalized Ratio 2.5; Prothrombin Time (Protime)PT. 26.6 SECONDS (11.7-14.9)
== END 2020-02-10 18:00 | disposition home or self-care (01) ==
LOC: LAB 07:52
PROVIDERS: Family Provider Family Medicine; PCP Family Medicine; Referring Provider Internal Medicine Cardiovascular Disease; Visit Provider Internal Medicine Cardiovascular Disease
DX: Z79.01 Long term (current) use of anticoagulants (principal)
CPT/HCPCS: 36415; 85610

== ENCOUNTER 2020-03-24 07:55 | Outpatient (RCR) | payer MEDICARE, SELFPAY ==
[2018-11-11 07:59] VITALS: BMI 41.0
[2020-03-24 08:52] LABS: International Normalized Ratio 1.8; Prothrombin Time (Protime)PT. 20.5 SECONDS (11.7-14.9)
== END 2020-04-10 18:00 | disposition home or self-care (01) ==
LOC: LAB 07:55
PROVIDERS: Nurse Practitioner Family; Family Provider Family Medicine; PCP Family Medicine; Referring Provider Internal Medicine Cardiovascular Disease; Visit Provider Internal Medicine Cardiovascular Disease
DX: Z79.01 Long term (current) use of anticoagulants (principal)
CPT/HCPCS: 36415; 85610

== ENCOUNTER 2020-04-28 08:24 | Outpatient (RCR) | payer MEDICARE, SELFPAY ==
[2020-03-24 08:31] VITALS: BMI 40.3
[2020-04-28 09:47] LABS: International Normalized Ratio 2.7; Prothrombin Time (Protime)PT. 28.4 SECONDS (11.7-14.9)
== END 2020-04-28 18:00 | disposition home or self-care (01) ==
LOC: LAB 08:24
PROVIDERS: Family Provider Family Medicine; PCP Family Medicine; Referring Provider Internal Medicine Cardiovascular Disease; Visit Provider Internal Medicine Cardiovascular Disease
DX: Z79.01 Long term (current) use of anticoagulants (principal)
CPT/HCPCS: 36415; 85610

== ENCOUNTER → 2020-08-02 09:22 | Outpatient (CLI) | payer MEDICARE, SELFPAY ==
[2020-03-24 08:31] VITALS: BMI 40.3
[2020-08-02 10:57] LABS: International Normalized Ratio 2.4; Prothrombin Time (Protime)PT. 25.5 SECONDS (11.7-14.9)
[2020-08-02 11:12] LABS: Vitamin D,25 Hydroxy 24.4 ng/mL
[2020-08-02 11:17] LABS: Anion Gap 6 (5-15); BUN 21 mg/dL (7-18); BUN/Creat Ratio 23.9 RATIO (10-20); Calcium,Total 8.5 mg/dL (8.5-10.1); Chloride 107 mmol/L (98-107); Cholesterol 180 mg/dL (200); Creatinine, Serum 0.88 mg/dL (0.70-1.30); EST Glomerular Filtration Rate 92 mL/min (>60); Est Glom Filt Rate - Afr Amer 111 mL/min (>60); Glucose 78 mg/dL (74-106); High Density Lipoprotein 73 mg/dL; Potassium 3.9 mmol/L (3.5-5.1); Sodium Level 140 mmol/L (136-145); Triglycerides 55 mg/dL; Very Low Density Lipoprotein 11 mg/dL (5-40)
== END ==
PROVIDERS: Internal Medicine Cardiovascular Disease; PCP Family Medicine; Referring Provider Family Medicine; Visit Provider Family Medicine
DX: Z00.00 Encounter for general adult medical examination without abnormal findings (principal); Z79.01 Long term (current) use of anticoagulants
CPT/HCPCS: 36415; 80048; 80061; 82306; 85610

== ENCOUNTER 2020-10-26 09:56 | Outpatient (RCR) | payer MEDICARE, SELFPAY ==
[2020-03-24 08:31] VITALS: BMI 40.3
[2020-10-26 12:15] LABS: International Normalized Ratio 2.7; Prothrombin Time (Protime)PT. 28.3 SECONDS (11.7-14.9)
== END 2020-10-26 18:00 | disposition home or self-care (01) ==
LOC: LAB 09:56
PROVIDERS: Family Provider Family Medicine; PCP Family Medicine; Referring Provider Internal Medicine Cardiovascular Disease; Visit Provider Internal Medicine Cardiovascular Disease
DX: Z79.01 Long term (current) use of anticoagulants (principal)
CPT/HCPCS: 36415; 85610

== ENCOUNTER 2020-11-28 07:17 | Outpatient (RCR) | payer MEDICARE, SELFPAY ==
[2020-03-24 08:31] VITALS: BMI 40.3
[2020-11-28 07:59] LABS: International Normalized Ratio 2.5; Prothrombin Time (Protime)PT. 25.9 SECONDS (11.7-14.9)
== END 2020-11-28 18:00 | disposition home or self-care (01) ==
LOC: LAB 07:17
PROVIDERS: Family Provider Family Medicine; PCP Family Medicine; Referring Provider Internal Medicine Cardiovascular Disease; Visit Provider Internal Medicine Cardiovascular Disease
DX: Z79.01 Long term (current) use of anticoagulants (principal)
CPT/HCPCS: 36415; 85610

== ENCOUNTER 2021-04-04 08:05 | Outpatient (RCR) | payer MEDICARE, SELFPAY ==
[2020-03-24 08:31] VITALS: BMI 40.3
[2021-04-04 08:36] LABS: International Normalized Ratio 2.3; Prothrombin Time (Protime)PT. 24.5 SECONDS (11.7-14.9)
== END 2021-04-04 18:00 | disposition home or self-care (01) ==
LOC: LAB 08:05
PROVIDERS: Family Provider Family Medicine; PCP Family Medicine; Referring Provider Internal Medicine Cardiovascular Disease; Visit Provider Internal Medicine Cardiovascular Disease
DX: I48.11 Longstanding persistent atrial fibrillation (principal); Z79.01 Long term (current) use of anticoagulants
CPT/HCPCS: 36415; 85610

== ENCOUNTER → 2021-08-06 09:18 | Outpatient (CLI) | payer MEDICARE, SELFPAY ==
[2021-08-06 12:25] LABS: International Normalized Ratio 2.1; Prothrombin Time (Protime)PT. 22.5 SECONDS (11.7-14.9)
[2021-08-06 12:42] LABS: Anion Gap 7 (5-15); BUN 28 mg/dL (7-18); BUN/Creat Ratio 28.7 RATIO (10-20); Calcium,Total 9.1 mg/dL (8.5-10.1); Chloride 107 mmol/L (98-107); Cholesterol 186 mg/dL (200); Creatinine, Serum 0.98 mg/dL (0.70-1.30); EST Glomerular Filtration Rate 81 mL/min (>60); Est Glom Filt Rate - Afr Amer 98 mL/min (>60); Glucose 87 mg/dL (74-106); High Density Lipoprotein 73 mg/dL; PSA,Total- Diagnostic 0.11 ng/mL (0.0-4.0); Sodium Level 139 mmol/L (136-145); Triglycerides 54 mg/dL; Very Low Density Lipoprotein 11 mg/dL (5-40)
== END ==
PROVIDERS: Internal Medicine Cardiovascular Disease; PCP Family Medicine; Visit Provider Family Medicine
DX: Z00.00 Encounter for general adult medical examination without abnormal findings (principal); I48.11 Longstanding persistent atrial fibrillation; Z79.01 Long term (current) use of anticoagulants
CPT/HCPCS: 36415; 80048; 80061; 84153; 85610

== ENCOUNTER 2021-10-25 08:10 | Outpatient (RCR) | payer MEDICARE, SELFPAY ==
[2021-04-10 23:27] VITALS: BMI 40.3
[2021-10-25 09:17] LABS: Prothrombin Time (Protime)PT. 21.8 SECONDS (11.7-14.9)
== END 2021-11-08 18:00 | disposition home or self-care (01) ==
LOC: LAB 08:10
PROVIDERS: Family Provider Family Medicine; PCP Family Medicine; Referring Provider Internal Medicine Cardiovascular Disease; Visit Provider Internal Medicine Cardiovascular Disease
DX: Z79.01 Long term (current) use of anticoagulants (principal); I48.11 Longstanding persistent atrial fibrillation
CPT/HCPCS: 36415; 85610

== ENCOUNTER 2022-05-08 09:49 | Outpatient (RCR) | payer OTHER, SELFPAY ==
[2021-11-09 02:34] VITALS: BMI 40.3
[2022-04-24 10:17] LABS: International Normalized Ratio 1.5; Prothrombin Time (Protime)PT. 18.1 SECONDS (11.7-14.9)
[2022-05-08 10:34] LABS: International Normalized Ratio 2.7; Prothrombin Time (Protime)PT. 28.4 SECONDS (11.7-14.9)
== END 2022-05-08 18:00 | disposition home or self-care (01) ==
LOC: LAB 09:49
PROVIDERS: Family Provider Family Medicine; PCP Family Medicine; Referring Provider Internal Medicine Cardiovascular Disease; Visit Provider Internal Medicine Cardiovascular Disease
DX: Z79.01 Long term (current) use of anticoagulants (principal); I48.11 Longstanding persistent atrial fibrillation
CPT/HCPCS: 36415; 85610

== ENCOUNTER → 2022-05-08 | Outpatient (CLI) | payer OTHER, SELFPAY ==
--- NOTE | 2022-05-08 09:01 | ECHOCS_ITS ---
Reason For Study: ATRIAL FIB Procedure This was a 2D Doppler, Color Flow transthoracic echocardiogram. The study was technically difficult. Contrast injection was performed. Exam performed in department. Left Ventricle Normal LV size. Mild concentric left ventricular hypertrophy. Left ventricular systolic function is normal. The estimated ejection fraction is 55 %. No regional wall motion abnormalities noted. Right Ventricle Normal RV size. Normal systolic function. Atria The left atrium is severely enlarged. The right atrium is severely enlarged. Mitral Valve Normal mitral valve. Mild (1+) eccentric mitral valve insufficiency. Tricuspid Valve Normal tricuspid valve. Mild tricuspid valve insufficiency. Pulmonary artery systolic pressure is 23 mmHg. Aortic Valve Trisinus/trileaflet aortic valve. Pulmonic Valve The pulmonic valve is not well visualized. Great Vessels Mildly dilated aortic root. The pulmonary artery is normal size. Normal inferior vena cava. Pericardium/Pleural No pericardial effusion. Medication 22 gauge I.V. with prn adaptor inserted into right arm. Diluted definity 2ml given slow IV push to enhance endocardial definition. MMode/2D Measurements & Calculations LVIDd: 5.4 cm IVSd: 1.2 cm Ao root diam: 3.8 cm LVIDs: 2.7 cm LVPWd: 1.6 cm RVDd: 3.5 cm FS: 49.2 % LAV(MOD-sp2): 251.1 ml LA A4 area: 65.7 cm2 LA dimension(2D): 6.5 cm RA A4 area: 39.6 cm2 Time Measurements MV dec time: 0.23 sec Doppler Measurements & Calculations MV V2 max: 121.7 cm/sec Ao V2 max: 130.8 cm/sec LV V1 max: 103.0 cm/sec MV max P.0 mmHg Ao max P.9 mmHg LV V1 max P.2 mmHg MV V2 mean: 61.1 cm/sec Ao V2 mean: 90.2 cm/sec LV V1 mean P.2 mmHg MV mean P.0 mmHg Ao mean P.7 mmHg LV V1 mean: 69.4 cm/sec MV V2 VTI: 28.1 cm Ao V2 VTI: 24.2 cm LV V1 VTI: 22.4 cm PA V2 max: 89.3 cm/sec TR max rosa: 227.5 cm/sec PA V2 mean: 66.1 cm/sec TR max P.7 mmHg ECHO/Echo Complete W/ Contrast Interpretation Summary Normal LV size. Left ventricular systolic function is normal. The left atrium is severely enlarged. Mildly dilated aortic root. Mild concentric left ventricular hypertrophy. The estimated ejection fraction is 55 %. Mild (1+) eccentric mitral valve insufficiency. Trisinus/trileaflet aortic valve. Ordering Physician: Dhiraj Wells Referring Physician: Dhiraj Wells Performed By: Yamile Hsu RCS
== END | disposition home or self-care (01) ==
LOC: CVS 09:01
PROVIDERS: PCP Family Medicine; Referring Provider Internal Medicine Cardiovascular Disease; Visit Provider Internal Medicine Cardiovascular Disease
DX: I48.11 Longstanding persistent atrial fibrillation (principal)
CPT/HCPCS: 93306; Q9957; A4216; C8929

== ENCOUNTER 2022-08-07 09:36 | Outpatient (RCR) | payer OTHER, SELFPAY ==
[2022-05-10 21:39] VITALS: BMI 40.3
[2022-08-07 12:44] LABS: International Normalized Ratio 2.7; Prothrombin Time (Protime)PT. 28.1 SECONDS (11.7-14.9)
== END 2022-08-07 18:00 | disposition home or self-care (01) ==
LOC: LAB 09:36
PROVIDERS: Family Provider Family Medicine; PCP Family Medicine; Referring Provider Internal Medicine Cardiovascular Disease; Visit Provider Internal Medicine Cardiovascular Disease
DX: I48.11 Longstanding persistent atrial fibrillation (principal); Z79.01 Long term (current) use of anticoagulants
CPT/HCPCS: 36415; 85610

== ENCOUNTER 2022-11-29 08:38 | Outpatient (RCR) | payer MEDICARE, SELFPAY ==
[2022-08-11 04:01] VITALS: BMI 40.3
[2022-11-29 10:01] LABS: Prothrombin Time (Protime)PT. 30.6 SECONDS (11.7-14.9)
== END 2022-12-08 01:24 | disposition home or self-care (01) ==
LOC: LAB 08:38
PROVIDERS: Family Provider Family Medicine; PCP Family Medicine; Referring Provider Internal Medicine Cardiovascular Disease; Visit Provider Internal Medicine Cardiovascular Disease
DX: I48.11 Longstanding persistent atrial fibrillation (principal); Z79.01 Long term (current) use of anticoagulants
CPT/HCPCS: 36415; 85610

== ENCOUNTER 2023-02-10 09:09 | Outpatient (RCR) | payer MEDICARE, SELFPAY ==
[2022-12-08 01:24] VITALS: BMI 40.3
[2023-02-10 10:10] LABS: International Normalized Ratio 2.8
== END 2023-03-10 18:00 | disposition home or self-care (01) ==
LOC: LAB 09:09
PROVIDERS: Family Provider Family Medicine; PCP Family Medicine; Referring Provider Internal Medicine Cardiovascular Disease; Visit Provider Internal Medicine Cardiovascular Disease
DX: I48.11 Longstanding persistent atrial fibrillation (principal); Z79.01 Long term (current) use of anticoagulants
CPT/HCPCS: 36415; 85610

== ENCOUNTER 2023-05-28 08:21 | Outpatient (RCR) | payer MEDICARE, SELFPAY ==
[2023-03-11 00:48] VITALS: BMI 40.3
[2023-05-28 09:10] LABS: International Normalized Ratio 2.5
== END 2023-05-28 18:00 | disposition home or self-care (01) ==
LOC: LAB 08:21
PROVIDERS: Family Provider Family Medicine; PCP Family Medicine; Referring Provider Internal Medicine Cardiovascular Disease; Visit Provider Internal Medicine Cardiovascular Disease
DX: I48.11 Longstanding persistent atrial fibrillation (principal); Z79.01 Long term (current) use of anticoagulants
CPT/HCPCS: 36415; 85610

== ENCOUNTER → 2023-08-25 | Outpatient (CLI) | payer MEDICARE, SELFPAY ==
[2023-08-25 12:26] LABS: International Normalized Ratio 2.2; Prothrombin Time (Protime)PT. 24.4 SECONDS (11.7-14.9)
[2023-08-25 13:05] LABS: Vitamin D,25 Hydroxy 43.8 ng/mL
[2023-08-25 13:58] LABS: ALB/GLOB Ratio 0.8 RATIO (0.9-2.4); AST(SGOT) 24 U/L (15-37); Alanine Aminotransfer ALT/SGPT 23 U/L (16-61); Albumin, Serum 3.5 g/dL (3.2-5.0); Alkaline Phosphatase 85 U/L (45-117); Anion Gap 8 (5-15); BUN 21 mg/dL (7-18); BUN/Creat Ratio 23.7 RATIO (10-20); Calcium,Total 8.9 mg/dL (8.5-10.1); Chloride 107 mmol/L (98-107); Cholesterol 178 mg/dL (200); Creatinine, Serum 0.89 mg/dL (0.70-1.30); EST Glomerular Filtration Rate 90 mL/min (>60); Est Glom Filt Rate - Afr Amer 109 mL/min (>60); Globulin 4.2 g/dL (2.2-4.2); Glucose 82 mg/dL (74-106); High Density Lipoprotein 70 mg/dL; Potassium 3.8 mmol/L (3.5-5.1); Protein, Total 7.7 g/dL (6.4-8.2); Sodium Level 140 mmol/L (136-145); Triglycerides 47 mg/dL; Very Low Density Lipoprotein 9 mg/dL (5-40)
== END | disposition home or self-care (01) ==
LOC: MFPLAB 09:26
PROVIDERS: Internal Medicine Cardiovascular Disease; PCP Family Medicine; Visit Provider Family Medicine
DX: Z00.00 Encounter for general adult medical examination without abnormal findings (principal); I48.91 Unspecified atrial fibrillation; E55.9 Vitamin D deficiency, unspecified; I10 Essential (primary) hypertension
CPT/HCPCS: 36415; 80053; 80061; 82306; 85610

== ENCOUNTER 2023-10-24 09:13 | Outpatient (RCR) | payer MEDICARE, SELFPAY ==
[2023-06-10 22:23] VITALS: BMI 40.3
[2023-10-24 09:48] LABS: International Normalized Ratio 2.5; Prothrombin Time (Protime)PT. 26.5 SECONDS (11.7-14.9)
== END 2023-11-09 00:30 | disposition home or self-care (01) ==
LOC: LAB 09:13
PROVIDERS: Family Provider Family Medicine; PCP Family Medicine; Referring Provider Internal Medicine Cardiovascular Disease; Visit Provider Internal Medicine Cardiovascular Disease
DX: I48.11 Longstanding persistent atrial fibrillation (principal); Z79.01 Long term (current) use of anticoagulants
CPT/HCPCS: 36415; 85610

== ENCOUNTER 2024-01-19 08:17 | Outpatient (RCR) | payer MEDICARE, SELFPAY ==
[2023-11-09 00:59] VITALS: BMI 40.3
[2024-01-19 09:17] LABS: International Normalized Ratio 2.1; Prothrombin Time (Protime)PT. 23.8 SECONDS (11.7-14.9)
== END 2024-01-19 18:00 | disposition home or self-care (01) ==
LOC: LAB 08:17
PROVIDERS: Family Provider Family Medicine; PCP Family Medicine; Referring Provider Internal Medicine Cardiovascular Disease; Visit Provider Internal Medicine Cardiovascular Disease
DX: I48.11 Longstanding persistent atrial fibrillation (principal); Z79.01 Long term (current) use of anticoagulants
CPT/HCPCS: 36415; 85610

== ENCOUNTER 2024-05-31 09:23 | Outpatient (RCR) | payer MEDICARE, SELFPAY ==
[2024-02-09 03:12] VITALS: BMI 40.3
[2024-05-31 10:00] LABS: International Normalized Ratio 2.1; Prothrombin Time (Protime)PT. 23.7 SECONDS (11.7-14.9)
== END 2024-06-03 18:00 | disposition home or self-care (01) ==
LOC: LAB 09:23
PROVIDERS: Physician Assistant Medical; Family Provider Family Medicine; PCP Family Medicine; Referring Provider Internal Medicine Cardiovascular Disease; Visit Provider Internal Medicine Cardiovascular Disease
DX: I48.11 Longstanding persistent atrial fibrillation (principal); Z79.01 Long term (current) use of anticoagulants
CPT/HCPCS: 36415; 85610

== ENCOUNTER → 2024-08-27 | Outpatient (CLI) | payer MEDICARE, SELFPAY ==
[2024-08-27 10:38] LABS: International Normalized Ratio 2.8; Prothrombin Time (Protime)PT. 30.5 SECONDS (11.7-14.9)
[2024-08-27 11:34] LABS: Anion Gap 7 (5-15); BUN 26 mg/dL (7-18); BUN/Creat Ratio 28.5 RATIO (10-20); Chloride 109 mmol/L (98-107); Cholesterol 159 mg/dL (200); Creatinine, Serum 0.91 mg/dL (0.70-1.30); EST Glomerular Filtration Rate 87 mL/min (>60); Est Glom Filt Rate - Afr Amer 105 mL/min (>60); Glucose 89 mg/dL (74-106); High Density Lipoprotein 78 mg/dL; Potassium 3.9 mmol/L (3.5-5.1); Sodium Level 140 mmol/L (136-145); Triglycerides 43 mg/dL; Very Low Density Lipoprotein 9 mg/dL (5-40)
== END | disposition home or self-care (01) ==
LOC: MFPLAB 09:28
PROVIDERS: Internal Medicine Cardiovascular Disease; PCP Family Medicine; Referring Provider Family Medicine; Visit Provider Family Medicine
DX: I48.91 Unspecified atrial fibrillation (principal); Z12.5 Encounter for screening for malignant neoplasm of prostate

== ENCOUNTER 2024-10-01 08:56 | Outpatient (RCR) | payer MEDICARE, SELFPAY ==
[2024-06-10 20:55] VITALS: BMI 40.3
[2024-10-01 09:30] LABS: International Normalized Ratio 2.4; Prothrombin Time (Protime)PT. 26.6 SECONDS (11.7-14.9)
== END 2024-10-08 18:00 | disposition home or self-care (01) ==
LOC: LAB 08:56
PROVIDERS: Family Provider Family Medicine; PCP Family Medicine; Referring Provider Internal Medicine Cardiovascular Disease; Visit Provider Internal Medicine Cardiovascular Disease
DX: I48.11 Longstanding persistent atrial fibrillation (principal); Z79.01 Long term (current) use of anticoagulants
CPT/HCPCS: 36415; 85610

== ENCOUNTER 2024-12-30 06:26 | Outpatient (RCR) | payer MEDICARE, SELFPAY ==
[2024-10-09 04:53] VITALS: BMI 40.3
[2024-12-10 08:54] LABS: International Normalized Ratio 2.5; Prothrombin Time (Protime)PT. 27.6 SECONDS (11.7-14.9)
[2024-12-30 07:07] LABS: International Normalized Ratio 2.1; Prothrombin Time (Protime)PT. 23.8 SECONDS (11.7-14.9)
== END 2024-12-30 18:00 | disposition home or self-care (01) ==
LOC: LAB 06:26
PROVIDERS: Physician Assistant Medical; Family Provider Family Medicine; PCP Family Medicine; Referring Provider Internal Medicine Cardiovascular Disease; Visit Provider Internal Medicine Cardiovascular Disease
DX: I48.11 Longstanding persistent atrial fibrillation (principal); Z79.01 Long term (current) use of anticoagulants
CPT/HCPCS: 36415; 85610

== ENCOUNTER 2025-03-18 08:00 | Outpatient (RCR) | payer MEDICARE, SELFPAY ==
[2025-01-08 22:18] VITALS: BMI 40.3
[2025-03-18 09:29] LABS: Prothrombin Time (Protime)PT. 24.8 SECONDS (11.7-14.9)
== END 2025-03-18 18:00 | disposition home or self-care (01) ==
LOC: LAB 08:00
PROVIDERS: Family Provider Family Medicine; PCP Family Medicine; Referring Provider Internal Medicine Cardiovascular Disease; Visit Provider Internal Medicine Cardiovascular Disease
DX: I48.11 Longstanding persistent atrial fibrillation (principal); Z79.01 Long term (current) use of anticoagulants
CPT/HCPCS: 36415; 85610

== ENCOUNTER 2025-07-01 08:20 | Outpatient (RCR) | payer MEDICARE, SELFPAY ==
[2025-07-01 09:43] LABS: Prothrombin Time (Protime)PT. 27.6 SECONDS (11.7-14.9)
== END 2025-07-09 18:00 | disposition home or self-care (01) ==
LOC: LAB 08:20
PROVIDERS: Family Provider Family Medicine; PCP Family Medicine; Referring Provider Internal Medicine Cardiovascular Disease; Visit Provider Internal Medicine Cardiovascular Disease
DX: I48.11 Longstanding persistent atrial fibrillation (principal); Z79.01 Long term (current) use of anticoagulants
CPT/HCPCS: 36415; 85610